=== PATIENT | female | born 1995 | race Caucasian/White ===

== ENCOUNTER 2016-06-02 08:51 | Emergency (ER) | payer OTHER ==
[~2016-06-02 08:51] MED LIST: NORCO 10-325 T1 EACH PO
[2016-06-02 10:14] LABS: RED BLOOD COUNT 4.39 M/UL (4.00-5.10); WHITE BLOOD COUNT 7.1 K/UL (4.5-11.0)
[2016-06-02 10:30] LABS: BUN/CREATININE RATIO 16 (0-10)
== END 2016-06-02 12:40 | disposition home or self-care (01) ==
LOC: ER1 08:51
PROVIDERS: Physician Assistant Medical
DX: O99.282 Endocrine, nutritional and metabolic diseases complicating pregnancy, second trimester (principal); E86.0 Dehydration; O99.412 Diseases of the circulatory system complicating pregnancy, second trimester; I95.1 Orthostatic hypotension; Z3A.18 18 weeks gestation of pregnancy
CPT/HCPCS: 36415; 80053; 81001; 84484; 85025; 87086; 93005; 96360; 96361; 99284

== ENCOUNTER 2016-07-21 21:35 | Outpatient (CLI) | payer OTHER | END 2016-07-21 23:49 | disposition home or self-care (01) | LOC: GENOP 21:35 | DX: O9A.212 Injury, poisoning and certain other consequences of external causes complicating pregnancy, second trimester (principal); R10.9 Unspecified abdominal pain; O36.8120 Decreased fetal movements, second trimester, not applicable or unspecified; Z3A.26 26 weeks gestation of pregnancy; W19.XXXA Unspecified fall, initial encounter; Y92.002 Bathroom of unspecified non-institutional (private) residence as the place of occurrence of the external cause | CPT/HCPCS: G0463 ==